=== PATIENT | male | born 1945 | race Caucasian/White ===

== ENCOUNTER → 2019-01-03 | Outpatient (CLI) | payer OTHER | END | disposition home or self-care (01) | LOC: LAB SHORT 12:00 → LAB 12:00 | DX: Z48.02 Encounter for removal of sutures (principal); L08.9 Local infection of the skin and subcutaneous tissue, unspecified; L82.1 Other seborrheic keratosis | CPT/HCPCS: 87070; 87205 ==

== ENCOUNTER → 2019-05-03 | Outpatient (CLI) | payer OTHER | END | disposition home or self-care (01) | LOC: LAB 09:48 → LAB SHORT 09:48 | DX: Z48.817 Encounter for surgical aftercare following surgery on the skin and subcutaneous tissue (principal); L08.9 Local infection of the skin and subcutaneous tissue, unspecified; R60.0 Localized edema | CPT/HCPCS: 87070; 87205 ==

== ENCOUNTER 2020-05-31 13:38 | Emergency (ER) | payer OTHER ==
[~2020-05-31] VITALS: Ht 180.3 cm; Wt 91.6 kg
[2020-05-31] MEDS ORDERED: AMLO5 PO (13:55)
[2020-05-31 14:23] LABS: Calcium, Blood 8.7 mg/dL (8.5-10.1); Creatinine, Blood 1.37 mg/dL (0.60-1.20); Potassium, Blood 3.8 mmol/L (3.5-5.5)
== END 2020-05-31 14:50 | disposition home or self-care (01) ==
LOC: ER 13:38
PROVIDERS: Physician Assistant
DX: R79.89 Other specified abnormal findings of blood chemistry (principal); N28.9 Disorder of kidney and ureter, unspecified; I10 Essential (primary) hypertension
CPT/HCPCS: 80048; 99281

== ENCOUNTER 2021-06-30 06:03 | Day surgery (SDC) | payer OTHER ==
[~2021-06-30] VITALS: Ht 180.3 cm; Wt 100.0 kg
[~2021-06-30 06:03] MED LIST: AMLO5 PO; ATOR40TA; Aspir 8181 MG PO; B-121000 MC7 PO; CLOP75 PO; EUTHYROX125 MCG PO; MELATONIN5 M1 PO; POTA8 PO; TERA5 PO
[2021-06-30] MEDS ORDERED: Lisinopril2.5 MG PO (06:33)
[2021-06-30] MEDS ORDERED: FURO40 PO (06:33)
--- NOTE | 2021-06-30 10:12 | NUR ---
PATIENT RETURNED FROM THE [facility] S/P RIGHT RENAL STENT. RIGHT FEMORAL ANGIOSEAL FAILED. MANUAL PRESSURE HELD AND HEMOSTASIS NOTED AT 0940. PATIENT PLACED ON THE MONITOR AND CALL LIGHT IN REACH. HOB FLAT, BED IN REVERSE TRENDELENBERG.
--- NOTE | 2021-06-30 12:05 | NUR ---
PATIENT ROLLED TO THE LEFT SIDE, RIGHT GROIN STABLE. URINATED. IVF DISCONTINUED. LUNCH TRAY SET UP ADN PATIENT FEEDING SELF.
--- NOTE | 2021-06-30 15:15 | NUR ---
1300 PATIENT ASSISTED UP SITTING ON THE SIDE OF THE BED. DRESSING SELF. PATIENT UP TO THE RESTROOM, WALKING WITH A CANE. GAIT STEADY, PATIENT C/O LIGHTHEADEDNESS AT FIRST BUT GETTING BETTER. PATIENT BACK TO BEDSIDE. REVIEWED DISCHARGE INSTRUCTIONS AND FOLLOW UP APPOINTMENT IN 4 WEEKS. PIV REMOVED AND PRESSURE DRESSING APPLIED. CALLED FOR RIDE. RIDE WILL BE HERE AT 1330. PATIENT WHEELCHAIRED TO THE [place] ENTRANCE AND DISCHARGED HOME VIA RIDE.
== END 2021-06-30 13:30 | disposition home or self-care (01) ==
LOC: MHTC 06:03
DX: I70.1 Atherosclerosis of renal artery (principal); I10 Essential (primary) hypertension
CPT/HCPCS: 76937; 99152; 99153; C1725; C1760; C1769; C1876; C1887; C1894; J1644; J2250; J3010; J7030; J7050; Q9967

== ENCOUNTER 2021-12-01 07:38 | Emergency (ER) | payer OTHER ==
[~2021-12-01] VITALS: Ht 180.3 cm; Wt 97.5 kg
[~2021-12-01 07:38] MED LIST changes: +FURO40 PO; +Lisinopril2.5 MG PO
[2021-12-01 08:14] LABS: BASOPHILS ABSOLUTE AUTO 0.05 K/mm3 (0.00-0.23); BASOPHILS PERCENT AUTO 1 % (0-2); EOSINOPHILS ABSOLUTE AUTO 0.26 K/mm3 (0.00-0.68); EOSINOPHILS PERCENT AUTO 5 % (0-6); Hematocrit 39.4 % (37.0-53.0); Hemoglobin 13.2 g/dL (13.5-17.5); IMMATURE GRAN ABSOLUTE AUTO 0.03 K/mm3 (0.00-0.10); IMMATURE GRAN PERCENT AUTO 1 % (0-1); LYMPHOCYTES ABSOLUTE AUTO 1.54 K/mm3 (0.84-5.20); LYMPHOCYTES PERCENT AUTO 27 % (21-46); MONOCYTES PERCENT AUTO 9 % (4-13); Mean Corpuscular HGB 30.7 pg (26.0-34.0); Mean Corpuscular HGB Conc 33.5 g/dL (31.5-36.5); Mean Corpuscular Volume 92 fL (80-100); Mean Platelet Volume 11.1 fL (9.1-12.4); NEUTROPHILS ABSOLUTE AUTO 3.43 K/mm3 (1.96-9.15); NEUTROPHILS PERCENT AUTO 59 % (41-73); Platelet Count 165 K/mm3 (150-400); RDW Coefficient Variation 14.5 % (11.7-14.2); RDW Standard Deviation 48.7 fL (35.1-46.3); White Blood Cell Count 5.81 K/mm3 (4.00-11.30)
[2021-12-01 08:56] LABS: Albumin, Blood 3.7 g/dL (3.4-5.0); Bilirubin, Total 0.5 mg/dL (0.1-1.0); Bun/Creatinine Ratio 19.6 (12.0-20.0); Calcium, Blood 8.8 mg/dL (8.5-10.1); Creatinine, Blood 2.25 mg/dL (0.60-1.20); Globulin, Blood 3.6 g/dL (2.2-4.0); Potassium, Blood 4.1 mmol/L (3.5-5.5); Total Protein, Blood 7.3 g/dL (6.4-8.2)
[2021-12-01 09:59] LABS: Source, Urine Voided
[2021-12-01 10:03] LABS: Bilirubin, Urine Neg (Neg); Blood, Urine Neg (Neg); Glucose Qualitative, Urine Neg (Neg); Ketones, Urine Neg (Neg); Leukocyte Esterase, Urine Neg (Neg); Nitrite, Urine Neg (Neg); Protein, Urine 1+ (Neg); Specific Gravity, Urine 1.015 (1.003-1.022); Urobilinogen, Urine NORM (Normal)
[2021-12-01 10:08] LABS: Appearance, Urine Clear (Clear); Color, Urine Yellow (P-Yellow)
[2021-12-01] MEDS ORDERED: Robaxin750 MG PO ×2 (11:22→13:05)
== END 2021-12-01 13:10 | disposition home or self-care (01) ==
LOC: ER 07:38
PROVIDERS: Emergency Medicine
DX: S39.012A Strain of muscle, fascia and tendon of lower back, initial encounter (principal); I12.9 Hypertensive chronic kidney disease with stage 1 through stage 4 chronic kidney disease, or unspecified chronic kidney disease; N18.30 Chronic kidney disease, stage 3 unspecified; Z88.1 Allergy status to other antibiotic agents; Z79.82 Long term (current) use of aspirin; Z79.899 Other long term (current) drug therapy; X58.XXXA Exposure to other specified factors, initial encounter
CPT/HCPCS: 76770; 80053; 85025; 96374; 96375; 99283; A9270; J1170; J3010

== ENCOUNTER 2023-04-04 18:23 | Inpatient (IN) | payer OTHER ==
[2023-04-04] VITALS (8 sets, daily range): BP systolic 82–120; BP diastolic 54–96
[~2023-04-04] VITALS: Ht 152.4 cm; Wt 91.9 kg
[~2023-04-04 18:23] MED LIST changes: +Robaxin750 MG PO
[2023-04-04 18:47] LABS: Bicarbonate Venous 15.1 mmol/L (24.0-30.0); PCO2 Venous 44.2 mmHg (38-42); pH Blood Venous 7.18 (7.34-7.37)
[2023-04-04 18:57] LABS: BASOPHILS ABSOLUTE AUTO 0.06 K/mm3 (0.00-0.23); BASOPHILS PERCENT AUTO 1 % (0-2); EOSINOPHILS ABSOLUTE AUTO 0.29 K/mm3 (0.00-0.68); EOSINOPHILS PERCENT AUTO 3 % (0-6); Hematocrit 34.6 % (37.0-53.0); Hemoglobin 11.3 g/dL (13.5-17.5); IMMATURE GRAN ABSOLUTE AUTO 0.14 K/mm3 (0.00-0.10); IMMATURE GRAN PERCENT AUTO 1 % (0-1); LYMPHOCYTES ABSOLUTE AUTO 3.07 K/mm3 (0.84-5.20); LYMPHOCYTES PERCENT AUTO 26 % (21-46); MONOCYTES ABSOLUTE AUTO 0.67 K/mm3 (0.16-1.47); MONOCYTES PERCENT AUTO 6 % (4-13); Mean Corpuscular HGB 30.5 pg (26.0-34.0); Mean Corpuscular HGB Conc 32.7 g/dL (31.5-36.5); Mean Corpuscular Volume 94 fL (80-100); Mean Platelet Volume 11.5 fL (9.1-12.4); NEUTROPHILS ABSOLUTE AUTO 7.48 K/mm3 (1.96-9.15); NEUTROPHILS PERCENT AUTO 64 % (41-73); Platelet Count 194 K/mm3 (150-400); RDW Coefficient Variation 14.6 % (11.7-14.2); RDW Standard Deviation 50.4 fL (35.1-46.3); White Blood Cell Count 11.71 K/mm3 (4.00-11.30)
[2023-04-04 19:00] LABS: Calcium, Ionized (POC) 1.15 mmol/L (1.10-1.46); Chloride (POC) 106 mmol/L (98-108); Glucose (ISTAT POC) 164 mg/dL (70-99); Hemoglobin (POC) 10.9 g/dL (13.5-17.5); Potassium (POC) 3.6 mmol/L (3.5-5.5); Sodium (POC) 141 mmol/L (135-148); Total CO2 (POC) 19 mmol/L (21-32)
[2023-04-04 19:29] LABS: Bilirubin, Total 0.4 mg/dL (0.1-1.0); Calcium, Blood 8.5 mg/dL (8.5-10.1); Creatinine, Blood 2.86 mg/dL (0.60-1.20); Globulin, Blood 2.9 g/dL (2.2-4.0); Magnesium, Blood 2.6 mg/dL (1.6-2.4); Potassium, Blood 3.5 mmol/L (3.5-5.5); Total Protein, Blood 5.9 g/dL (6.4-8.2)
[2023-04-04 20:08] LABS: International Normalized Ratio 0.98; Prothrombin Time Results 10.3 Sec (9.7-11.5)
--- NOTE | 2023-04-04 21:52 | NUR ---
PT IS ALERT AND ORIENTED X4, VERY RESTLESS COMPLAINING OF ABDOMINAL PAIN. LEVOPHED DRIP INFUSING AT 9MCGS TO MAINTAIN MAP >65. OXYGEN SAT IS 95% ON 2LNC. PT AT BEDSIDE. PT IS SR ON THE HEEL SPRAYER, RATE IN THE 70S. PT IS AFEBRILE. PT HAS LARGE ABRASION ON HIS RIGHT LOWER LEG. TEMP AWAN PLACED IN ER, DRAINING YELLOW URINE. PT HAS HAD MULTIPLE BM SINCE COMING ON MY SHIFT.
[2023-04-05] VITALS (78 sets, daily range): BP systolic 70–143; BP diastolic 37–127
[2023-04-05 01:06] LABS: Base Excess Venous -6.8 mmol/L; Bicarbonate Venous 19.3 mmol/L (24.0-30.0); PCO2 Venous 35.2 mmHg (38-42); pH Blood Venous 7.34 (7.34-7.37)
[2023-04-05 01:07] LABS: BASOPHILS ABSOLUTE AUTO 0.03 K/mm3 (0.00-0.23); BASOPHILS PERCENT AUTO 0 % (0-2); EOSINOPHILS ABSOLUTE AUTO 0.01 K/mm3 (0.00-0.68); EOSINOPHILS PERCENT AUTO 0 % (0-6); Hematocrit 29.8 % (37.0-53.0); IMMATURE GRAN ABSOLUTE AUTO 0.11 K/mm3 (0.00-0.10); IMMATURE GRAN PERCENT AUTO 1 % (0-1); LYMPHOCYTES ABSOLUTE AUTO 0.62 K/mm3 (0.84-5.20); LYMPHOCYTES PERCENT AUTO 4 % (21-46); MONOCYTES ABSOLUTE AUTO 0.68 K/mm3 (0.16-1.47); MONOCYTES PERCENT AUTO 4 % (4-13); Mean Corpuscular HGB 30.2 pg (26.0-34.0); Mean Corpuscular HGB Conc 33.6 g/dL (31.5-36.5); Mean Corpuscular Volume 90 fL (80-100); Mean Platelet Volume 11.3 fL (9.1-12.4); NEUTROPHILS ABSOLUTE AUTO 13.84 K/mm3 (1.96-9.15); NEUTROPHILS PERCENT AUTO 91 % (41-73); Platelet Count 150 K/mm3 (150-400); RDW Coefficient Variation 14.8 % (11.7-14.2); RDW Standard Deviation 48.9 fL (35.1-46.3); Red Blood Cell Count 3.31 M/mm3 (4.30-5.90); White Blood Cell Count 15.29 K/mm3 (4.00-11.30)
[2023-04-05 01:31] LABS: Albumin, Blood 2.7 g/dL (3.4-5.0); Bilirubin, Total 0.6 mg/dL (0.1-1.0); Bun/Creatinine Ratio 16.6 (12.0-20.0); Calcium, Blood 7.8 mg/dL (8.5-10.1); Creatinine, Blood 2.65 mg/dL (0.60-1.20); Globulin, Blood 2.6 g/dL (2.2-4.0); Potassium, Blood 4.6 mmol/L (3.5-5.5); Thyroid Stimulating Hormone 0.045 uIU/mL (0.360-4.800); Total Protein, Blood 5.3 g/dL (6.4-8.2)
[2023-04-05 04:56] LABS: Source, Urine Foley catheter
[2023-04-05 05:05] LABS: Appearance, Urine Hazy (Clear); Bilirubin, Urine Neg (Neg); Blood, Urine 3+ (Neg); Color, Urine Yellow (P-Yellow); Glucose Qualitative, Urine Neg (Neg); Ketones, Urine Neg (Neg); Leukocyte Esterase, Urine Neg (Neg); Nitrite, Urine Neg (Neg); Protein, Urine 2+ (Neg); Specific Gravity, Urine 1.015 (1.003-1.022); Urobilinogen, Urine NORM (Normal)
[2023-04-05 05:17] LABS: Amorphous Light (0-Heavy); Bacteria Few /hpf; Granular Casts 0-2 /lpf (0); Mucus Light (0-Heavy); Squamous Epithelial Cells Few /hpf (Few); White Blood Cells, Urine Not Seen /hpf (0-5)
--- NOTE | 2023-04-05 06:07 | NUR ---
SHIFT SUMMERY PT IS ALERT AND ORIENTED X4, STILL HAVING ABD PAIN, MEDICATED PER EMAR. PT HAS ALSO HAD NAUSEA AND VOMITING, MEDICATED PER EMAR WELL. HE HAS HAD MULTIPLE BM THAT HAVE BECOME INCREASINGLY MORE LIQUID AND BRIGHT RED BLOODY THE NIGHT HAS PROGRESSED. OCCULT STOOL HAS BEEN ORDERED BUT PT HAS NOT HAD BM SINCE THAT TIME. HE IS ON LEVOPHED, TITRATING FOR MAP >65. HE IS A DAILY DRINKER. PT HAS BEEN AFEBRILE.
[2023-04-05 06:31] LABS: BASOPHILS ABSOLUTE AUTO 0.02 K/mm3 (0.00-0.23); BASOPHILS PERCENT AUTO 0 % (0-2); EOSINOPHILS ABSOLUTE AUTO 0.01 K/mm3 (0.00-0.68); EOSINOPHILS PERCENT AUTO 0 % (0-6); Hematocrit 28.5 % (37.0-53.0); Hemoglobin 9.7 g/dL (13.5-17.5); IMMATURE GRAN ABSOLUTE AUTO 0.07 K/mm3 (0.00-0.10); IMMATURE GRAN PERCENT AUTO 1 % (0-1); LYMPHOCYTES ABSOLUTE AUTO 0.79 K/mm3 (0.84-5.20); LYMPHOCYTES PERCENT AUTO 6 % (21-46); MONOCYTES PERCENT AUTO 6 % (4-13); Mean Corpuscular HGB 30.6 pg (26.0-34.0); Mean Corpuscular Volume 90 fL (80-100); Mean Platelet Volume 11.7 fL (9.1-12.4); NEUTROPHILS ABSOLUTE AUTO 11.87 K/mm3 (1.96-9.15); NEUTROPHILS PERCENT AUTO 88 % (41-73); Platelet Count 137 K/mm3 (150-400); RDW Coefficient Variation 14.6 % (11.7-14.2); RDW Standard Deviation 48.2 fL (35.1-46.3); Red Blood Cell Count 3.17 M/mm3 (4.30-5.90); White Blood Cell Count 13.56 K/mm3 (4.00-11.30)
[2023-04-05 06:48] LABS: Albumin, Blood 2.7 g/dL (3.4-5.0); Albumin/Globulin Ratio 1.1 (0.8-1.8); Bilirubin, Total 0.6 mg/dL (0.1-1.0); Bun/Creatinine Ratio 17.2 (12.0-20.0); Calcium, Blood 7.7 mg/dL (8.5-10.1); Creatinine, Blood 2.56 mg/dL (0.60-1.20); Globulin, Blood 2.5 g/dL (2.2-4.0); Magnesium, Blood 2.2 mg/dL (1.6-2.4); Potassium, Blood 4.1 mmol/L (3.5-5.5); Total Protein, Blood 5.2 g/dL (6.4-8.2)
--- NOTE | 2023-04-05 08:00 | NUR ---
ASSUMED CARE: REPORT RECEIVED FROM ROCÍO Blair RN. ASSUMED CARE OF THIS PT AT APPROX 0700. ON ASSESSMENT, THE PT IS RESTING QUIETLY & AWAKENS EASILY TO VERBAL STIMULUS. PER REPORT, THE PT HAS BEEN A&O TO ALL UNTIL RECEIVING PRN DOSE OF ATIVAN AT APPROX 0630 THIS AM FOR INCREASING ANXIETY. SINCE THAT TIME HE HAS BECOME CONFUSED & IMPULSIVE, PULLING AT LINES & ATTEMPTING TO CLIMB OOB. 1:1 SITTER REQUESTED BY THIS RN R/T BEHAVIORAL CHANGES & HIGH FALL RISK, NURSING VOLUNTEER SERVICES ASSISTANT NOTIFIED. LS DIM T/O, PT ON 2L NC W/ O2 SATS > 92% ON AVG. MONITOR SHOWS SR W/ HR 80s, HYPOTENSION W/ LEVOPHED INFUSING AT 3 MCG/MIN - SEE FLOWSHEET FOR TITRATIONS. PT NPO PER NURSING JUDGEMENT R/T AMS & SOMNOLENCE. TEMP AWAN PATENT/ DRAINING YELLOW URINE. SKIN CONDITION OVERALL FRAGILE, ECCHYMOTIC. NUMEROUS AREAS OF BRUISING NOTED TO BUE & LARGE ABRASION NOTED TO ANTERIOR RLE. PT STS THIS IS FROM FALLING IN THE SHOWER AT HOME PRIOR TO ADMISSION. Q2H REPOSITIONING TO MAINTAIN SKIN INTEGRITY. WILL CONTINUE TO MONITOR & UPDATE NEEDED.
[2023-04-05 10:47] LABS: Hematocrit 26.4 % (37.0-53.0)
--- NOTE | 2023-04-05 11:30 | NUR ---
DR MIKE / PALLIATIVE CARE: PROVIDER HAS CONTACTED THIS RN REGARDING AN UPDATE ON THE PT THIS AM. THIS RN HAS NOTIFIED HIM THAT THE PT CONTINUES TO REQUIRE VASOPRESSOR THERAPY TO MAINTAIN ADEQUATE BLOOD PRESSURES & THAT HE WAS NEVER STARTED ON HEPARIN R/T GI BLEEDING THAT WAS NOTED IN THE ED & HAS CONTINUED WHILE ADMITTED TO ICU. BLEEDING IS MINIMAL & NOTED TO BE DARK RED. REPEAT LABS HAVE BEEN ORDERED & THE PROVIDER HAS COME TO BEDSIDE TO EVAL THE PT & SPEAK W/ FAMILY. THIS RN HAS REQUESTED THAT CLIFF Sneed, PALLIATIVE RN, ALSO COME TO BEDSIDE DURING THIS TIME TO ASSIST W/ DISCUSSION REGARDING GOALS OF CARE FOR THIS PT. IT HAS BEEN DETERMINED DURING THIS TIME THAT THE PT WOULD NOT WANT TO RECEIVE CPR. DO NOT RESUSCITATE ORDERS PLACED, PURPLE DNR BAND NOW ON DOORFRAME & PT's LEFT WRIST. DR MIKE WILL BE CONSULTING GASTROENTEROLOGY & INTERVENTIONAL RADIOLOGY FOR THIS PT. ORDERS PLACED & PROVIDERS CONTACTED. BOTH PROVIDERS PLAN TO SEE THE PT KEILY.
--- NOTE | 2023-04-05 11:40 | NUR ---
Joint visit with Dr Grimaldo at Pt's bedside. Pt's OG Louis, and Pt's daughter Liliana at bedside. Dr Grimaldo examines Pt, reviews plan of care with Pt and family. This RN remained behind and answered questions. Pt appears to be struggling tracking conversation at this moment. Engaged in therapeutic discussion with Pt's OG Louis and Pt's daughter Liliana regarding code status wishes. Educated on life sustaining treatments including risks and implications to CPR/Intubation. Family reports Pt's wishes are DNR. Pt's Primary RN Melida at bedside during conversation. Melida will call Dr Grimaldo to discuss family concerns regarding antibiotics and will discuss changing Pt's code status to DNR. Family expresses appreciation and report no other concerns at this time. Pt and family agreeable to continued PC visits. Palliative Care will remain available
--- NOTE | 2023-04-05 11:45 | NUR ---
DR QURESHI: PROVIDER TO BEDSIDE THIS AM FOR CONSULTATION. HE HAS SPOKEN W/ THE PT & HIS FAMILY WHO ARE CURRENTLY AT BEDSIDE. THEY ARE AGREEABLE FOR THE PT TO HAVE SAND MILL OPERATOR PROCEDURE W/ ATTEMPT TO BALLOON OPEN THE RIGHT RENAL ARTERY STENT THAT IS CURRENTLY OCCLUDED. DR QURESHI WILL DISCUSS BEST PLAN OF CARE W/ Yolande MIKE & ZAFAR FOR THE EVENING.
--- NOTE | 2023-04-05 12:35 | NUR ---
DR STEPHEN: PROVIDER AT BEDSIDE THIS AFTERNOON FOR CONSULTATION. HE HAS BEEN ABLE TO VISUALIZE THE PT's BLOODY STLS IN THE BEDPAN & PLANS TO COMPLETE AN ENDOSCOPY THIS EVENING AFTER PRIOR SCHEDULED CASES HAVE BEEN COMPLETED. HE WOULD LIKE TO BE NOTIFIED IF CHANGES OCCUR OR IF THE PT BECOMES MORE CRITICAL PRIOR TO THAT TIME.
--- NOTE | 2023-04-05 13:25 | NUR ---
CALL TO PROVIDER: THIS RN HAS CONTACTED DR MIKE REGARDING THE PT's INCREASING LEVOPHED REQUIREMENTS W/ REQUESTS FOR ORDERS TO PLACE PICC LINE. ORDERS PLACED & EMILY Gonzalez, STREETCAR CONDUCTOR, PLANS TO PLACE A PICC LINE OVER THE WIRE OF THE POWERGLIDE THAT SHE PLACED TO HIS RUE THIS AM. PROVIDER STS OKAY TO CONSULT HANDLE TURNER FOR CENTRAL LINE PLACEMENT IF UNABLE TO PLACE PICC LINE.
--- NOTE | 2023-04-05 14:55 | NUR ---
CALL TO PROVIDER: DR MIKE CONTACTED W/ REQUEST FOR ADDITIONAL VASOPRESSOR R/T PT's CONTINUED LOW BP DESPITE INCREASED LEVOPHED INFUSION - SEE VS. ORDERS FOR VASOPRESSIN HAVE BEEN PLACED & DR FISHMAN, MEDICAL FACILITIES SECTION DIRECTOR, HAS BEEN CONSULTED TO SEE THIS PT & ASSIST W/ MANAGING CRITICAL CARE NEEDS. ORDERS PLACED & PROVIDER NOTIFIED.
[2023-04-05 15:08] LABS: Hematocrit 25.6 % (37.0-53.0); Hemoglobin 8.9 g/dL (13.5-17.5)
[2023-04-05 15:18] LABS: Base Excess Venous 1.4 mmol/L; Bicarbonate Venous 25.2 mmol/L (24.0-30.0); PCO2 Venous 42.7 mmHg (38-42)
[2023-04-05 15:24] LABS: Bun/Creatinine Ratio 16.1 (12.0-20.0); Creatinine, Blood 2.79 mg/dL (0.60-1.20); Potassium, Blood 3.6 mmol/L (3.5-5.5)
--- NOTE | 2023-04-05 16:55 | NUR ---
BIKE TECHNICIAN: PT HAS BEEN TAKEN OUT OF ROOM BY BIKE TECHNICIAN RNs FOR PROCEDURE W/ DR Fisher AT APPROX 1655.
--- NOTE | 2023-04-05 18:54 | NUR ---
RETURN FROM POMPOM MAKER / SHIFT SUMMARY: PT RETURNED TO ICU-10 AT APPROX 1820. ON ARRIVAL, HE IS RESTING QUIETLY BUT AWAKENS EASILY TO VERBAL STIMULUS. HE STS HAVING PAIN IN HIS HIPS R/T LAYING FLAT DURING PROCEDURE. PT ON 6L NC W/ O2 SATS > 92%. REQUESTS CPAP, PLACED ON PT W/ 4L O2 BLEED-IN. MONITOR SHOWS SR W/ HR 70-80s, LEVOPHED INFUSING AT 8 MCG/MIN, TITRATED TO 6 MCG/MIN W/ ARTERIAL LINE BP READING 130/50s. PT HAS NO CURRENT GI COMPLAINTS, SMALL AMNT OF PINK/RED FLUID NOTED BY POMPOM MAKER STAFF COMING FROM RECTUM DURING PROCEDURE. TEMP AWAN PATENT/ DRAINING YELLOW URINE, ADEQUATE OUTPUT NOTED THIS SHIFT. SKIN CONDITION OVERALL FRAGILE/ ECCHYMOTIC. 6FR SHEATH IN PLACE TO LEFT RADIAL ARTERY S/P POMPOM MAKER PROCEDURE. SMALL AMNT BRUISING NOTED AT INSERTION SITE, SURROUNDING TISSUE IS SOFT & PT DENIES PAIN OR ALTERED SENSATION TO AFFECTED HAND/ DIGITS. WILL CONTINUE TO MONITOR & REPORT OFF TO ONCOMING RN.
--- NOTE | 2023-04-05 19:00 | NUR ---
ASSUMED CARE ASSUMED CARE OF PATIENT. PT IS AWAKE AND ALERT. RESTLESS AND AGITATED IN BED. C/O LOWER BACK PAIN AND GENERAL DISCOMFORT. FAMILY IS AT BEDSIDE. SLOW VERBAL RESPONSE AND SPEECH IS SLIGHTLY MUMBLED, BUT PT IS ORIENTED X 3. CPAP 8-15 WITH 2L O2 BLEED-IN AT THIS TIME. RESPIRATIONS EVEN AND UNLABORED. UNABLE TO GET ADEQUATE O2 SATS D/T POOR PERFUSION. DENIES SOB OR DYSPNEA. MONITOR SHOWS NSR, RATE 70s-80s. LEVOPHED INFUSING AT 6MCG/MIN AND VASOPRESSIN AT 0.04UNITS/MIN TO MAINTAIN MAP >65. LEFT RADIAL ART LINE IN PLACE- POSITIONAL AND WITH POOR WAVE FORM AT TIMES. AWAN PATENT AND DRAINING DARK YELLOW URINE TO GRAVITY. PT OCCASIONALLY PULLING ON AWAN CATHETER. RIGHT BRAND ABRASION NOTED- TORI. SCATTERED BRUISES NOTED. CRISTIANO PICC NOTED, PATENT. SEE SHIFT ASSESSMENT FOR FULL ASSESSMENT.
--- NOTE | 2023-04-05 20:05 | NUR ---
PAIN DISCUSSED C/O INCREASED LOWER BACK PAIN WITH BOTH DR. BOLAND AND WITH EDDIE SANCHEZ NP. NEW ORDERS RECEIVED FOR PAIN MEDS.
--- NOTE | 2023-04-05 20:15 | NUR ---
EGD SCOPE CREW IS HERE AT THIS TIME WITH DR. STEPHEN AND DR. PABLO.
--- NOTE | 2023-04-05 20:41 | NUR ---
04/05/2320[address] DR[address] GARCIA, SEE ANESTHESIA RECORDS.
[2023-04-05 21:50] LABS: Hematocrit 25.8 % (37.0-53.0); Hemoglobin 8.6 g/dL (13.5-17.5)
--- NOTE | 2023-04-05 22:25 | NUR ---
AGITATION PT WITH INCREASED AGITATION AND RESLTLESSNESS. DOES NOT FOLLOW ANY COMMANDS AT THIS TIME. PULLING ON ALL LINES AND TUBES. ATTEMPTING TO CLIMB OUT OF BED. PT IS NOT RE-DIRECTABLE. CALL TO EDDIE SANCHEZ NP- NEW ORDERS RECEIVED FOR HALDOL.
[2023-04-06] VITALS (41 sets, daily range): BP systolic 63–129; BP diastolic 34–96
--- NOTE | 2023-04-06 00:05 | NUR ---
DECREASED URINE OUTPUT/CRITICAL LABS/CALL TO PT WITH <10MLs URINE X [address] FISHMAN WITH CONDITION UPDATE AND CRITICAL LAB VALUES. ORDER RECEIVED TO DO A 500ML NS BOLUS AT THIS TIME.
[2023-04-06 00:50] LABS: Base Excess Venous -13.3 mmol/L; Bicarbonate Venous 13.6 mmol/L (24.0-30.0); PCO2 Venous 46.9 mmHg (38-42); pH Blood Venous 7.14 (7.34-7.37)
--- NOTE | 2023-04-06 01:00 | NUR ---
CALL TO DISCUSSED CONDITION OF PT WITH DR. FISHMAN. NEW ORDER RECEIVED FOR A STAT EKG AND STAT LAB DRAWS. DR. FISHMAN WILL BE IN TO SEE PT.
--- NOTE | 2023-04-06 01:30 | NUR ---
UPDATE DR. FISHMAN AT BEDSIDE TO EVALUATE PT. PT CONTINUES TO BE RESTLESS/AGITATED. ANSWERS SOME YES/NO QUESTIONS. STILL NOT RE-DIRECTABLE AND STILL DOES NOT FOLLOW ANY COMMANDS. DR. FISHMAN AND THIS NURSE ATTEMPTED TO CALL DAUGHTER AND SIGNIFICANT OTHER FOR UPDATE- NO ANWER X THREE ATTEMPTS. NEW ORDER RECEIVED FOR A CARDIOLOGY CONSULT THIS AM.
--- NOTE | 2023-04-06 02:00 | NUR ---
BIPAP PT PLACED ON BIPAP 14/8, BUR 14, WITH 5L O2 AT THIS TIME PER DR. FISHMAN.
[2023-04-06 04:52] LABS: Albumin, Blood 2.4 g/dL (3.4-5.0); Bilirubin, Total 0.7 mg/dL (0.1-1.0); Bun/Creatinine Ratio 14.3 (12.0-20.0); Calcium, Blood 7.4 mg/dL (8.5-10.1); Creatinine, Blood 3.28 mg/dL (0.60-1.20); Globulin, Blood 2.5 g/dL (2.2-4.0); Magnesium, Blood 2.2 mg/dL (1.6-2.4); Phosphorus, Blood 7.5 mg/dL (2.5-4.9); Potassium, Blood 4.4 mmol/L (3.5-5.5); Total Protein, Blood 4.9 g/dL (6.4-8.2)
[2023-04-06 05:52] LABS: PCO2 Arterial 28.1 mmHg (35-45); PO2 Arterial 55.2 mmHg (80-100); pH Blood Arterial 7.19 (7.35-7.45)
--- NOTE | 2023-04-06 06:28 | NUR ---
SHIFT SUMMARY LEVOPHED TITRATED BETWEEN 6-14MCG/MIN TO MAINTAIN MAP >65. NOW INFUSING AT 11MCG/MIN. VASOPRESSIN CONTINUES AT 0.04UNITS/MIN. EXTREMITIES ARE COOL TO TOUCH. PT CONTINUES TO BE AGITATED AND RESTLESS. PT PLACED ON BIPAP 14/8 WITH 5L O2 AT 0200 PER MD. UNABLE TO GET ACCURATE O2 SATS T/O NIGHT D/T POOR PERFUSION. ORIENTED TO SELF ONLY AT THIS TIME. WILL ANSWER SOME YES/NO QUESITONS, BUT SPEECH IS MUMBLED. DOES NOT FOLLOW COMMANDS AND STILL IS NOT REDIRECTABLE. MOVES ALL EXTREMITIES AND REPOSITIONS SELF IN BED. BILATERAL SOFT WRIST RESTRAINTS OFF AT 0600- 1:1 SITTER IS AT BEDSIDE. NPO FOR NOW D/T ASPIRATION RISK. AWAN PATENT AND DRAINING TO GRAVITY- URINE OUTPUT HAS BEEN MINIMAL SINCE MIDNIGHT. DR. FISHMAN IS AWARE OF DECREASED URINE OUTPUT. AM LABS ARE PENDING AT THIS TIME. TMAX 100.3F. ATTEMPTED TO NOTIFY SIGNIFICANT OTHER AND DAUGHTER DURING NOC FOR STATUS UPDATE, BUT PHONE CALLS WERE UNANSWERED. EGD DONE AT BEGINNING OF SHIFT. WILL REPORT TO ONCOMING RN WHEN AVAILABLE.
[2023-04-06 06:33] LABS: BASOPHILS ABSOLUTE AUTO 0.02 K/mm3 (0.00-0.23); BASOPHILS PERCENT AUTO 0 % (0-2); EOSINOPHILS ABSOLUTE AUTO 0.01 K/mm3 (0.00-0.68); EOSINOPHILS PERCENT AUTO 0 % (0-6); Hematocrit 25.3 % (37.0-53.0); Hemoglobin 8.1 g/dL (13.5-17.5); IMMATURE GRAN ABSOLUTE AUTO 0.33 K/mm3 (0.00-0.10); IMMATURE GRAN PERCENT AUTO 2 % (0-1); LYMPHOCYTES ABSOLUTE AUTO 0.73 K/mm3 (0.84-5.20); LYMPHOCYTES PERCENT AUTO 4 % (21-46); MONOCYTES ABSOLUTE AUTO 1.28 K/mm3 (0.16-1.47); MONOCYTES PERCENT AUTO 7 % (4-13); Mean Corpuscular HGB 30.1 pg (26.0-34.0); Mean Corpuscular Volume 94 fL (80-100); Mean Platelet Volume 11.6 fL (9.1-12.4); NEUTROPHILS ABSOLUTE AUTO 15.91 K/mm3 (1.96-9.15); NEUTROPHILS PERCENT AUTO 87 % (41-73); Platelet Count 138 K/mm3 (150-400); RDW Coefficient Variation 15.6 % (11.7-14.2); RDW Standard Deviation 53.8 fL (35.1-46.3); Red Blood Cell Count 2.69 M/mm3 (4.30-5.90); White Blood Cell Count 18.28 K/mm3 (4.00-11.30)
[2023-04-06 07:47] LABS: Albumin, Blood 2.5 g/dL (3.4-5.0); Albumin/Globulin Ratio 0.9 (0.8-1.8); Bilirubin, Total 0.8 mg/dL (0.1-1.0); Bun/Creatinine Ratio 13.7 (12.0-20.0); Calcium, Blood 7.7 mg/dL (8.5-10.1); Creatinine, Blood 3.88 mg/dL (0.60-1.20); Globulin, Blood 2.8 g/dL (2.2-4.0); Potassium, Blood 4.7 mmol/L (3.5-5.5); Total Protein, Blood 5.3 g/dL (6.4-8.2)
--- NOTE | 2023-04-06 08:04 | NUR ---
CARE OF PT ASSUMED AT 0700. PT RESTLESS IN BED, TURNING FROM SIDE TO SIDE, REACHING AND PULLING AT LINES. SITTER AT BEDSIDE. PT DOES OPEN EYES TO VOICE, UNABLE TO FOLLOW SIMPLE COMMANDS AT THIS TIME. UNABLE TO ANSWER QUESTIONS AT THIS TIME. PT HAD LEVOPHED INITIALLY AT 11MCG TO KEEP MAP >65, AND VASOPRESSIN AT 0.04UNITS. LEVOPHED HAS BEEN TITRATED UP TO 14MCG. PT COOL AND PALE, WITH POOR PERIPHERAL PERFUSION. RECTAL TEMP PROBE PLACED, TEMP SHOWS 96.0. WARM BLANKETS PLACED. UNABLE TO OBTAIN SATS D/T PERFUSION; RT ATTEMPTED SEVERAL TIMES THIS AM. ABG DRAWN THIS AM. PT IN JUNCTIONAL RYTHYM W RATE 50'S. PT ON BIPAP 14/[address] LAZ Flores NEPHROLOGY CALLED THIS AM FOR CONSULT. DR HUERTAS CONSULTED WELL FOR CARDIOLOGY. PT'S DAUGHTER UPDATED BY JAKE MENDIOLA AROUND 0730 AND WILL BE IN THIS AM. DR FISHMAN WAS UPDATED BY JAKE MENDIOLA AND WILL BE IN SHORTLY.
[2023-04-06 08:08] LABS: BASOPHILS ABSOLUTE AUTO 0.02 K/mm3 (0.00-0.23); BASOPHILS PERCENT AUTO 0 % (0-2); EOSINOPHILS PERCENT AUTO 0 % (0-6); Hematocrit 25.6 % (37.0-53.0); Hemoglobin 8.2 g/dL (13.5-17.5); IMMATURE GRAN ABSOLUTE AUTO 0.36 K/mm3 (0.00-0.10); IMMATURE GRAN PERCENT AUTO 2 % (0-1); LYMPHOCYTES ABSOLUTE AUTO 0.86 K/mm3 (0.84-5.20); LYMPHOCYTES PERCENT AUTO 5 % (21-46); MONOCYTES ABSOLUTE AUTO 0.88 K/mm3 (0.16-1.47); MONOCYTES PERCENT AUTO 5 % (4-13); Mean Corpuscular HGB 30.5 pg (26.0-34.0); Mean Corpuscular Volume 95 fL (80-100); Mean Platelet Volume 12.1 fL (9.1-12.4); NEUTROPHILS PERCENT AUTO 88 % (41-73); Platelet Count 146 K/mm3 (150-400); RDW Coefficient Variation 15.7 % (11.7-14.2); RDW Standard Deviation 54.2 fL (35.1-46.3); Red Blood Cell Count 2.69 M/mm3 (4.30-5.90); White Blood Cell Count 18.42 K/mm3 (4.00-11.30)
--- NOTE | 2023-04-06 08:53 | NUR ---
DR NESBITT W NEPHROLOGY IN TO SEE PT. DR HUERTAS IS AWARE OF CONSULT AND WILL SEE PT TODAY. FAMILY AT BEDSIDE, INCLUDING PT'S S/O, AND PT'S DAUGHTER.
--- NOTE | 2023-04-06 09:50 | NUR ---
DR FISHMAN AT BEDSIDE, SPOKE WITH PATIENTS FAMILY. FAMILY HAS DECIDED THAT PATIENT WOULD WANT TO BE COMFORTABLE AND WOULD NOT WANT TO CONTINUE AGGRESSIVE CARE, FAMILY HAS DECIDED TO MAKE PATIENT COMFORT STATUS. HAS BEEN CALLED IN FOR "VIATICUM" PER FAMILY REQUEST.
--- NOTE | 2023-04-06 10:28 | NUR ---
Spiritual Care Support. Visited to inform family that Father Tutu has been contacted to come and do prayer and annointing of the sick. Family displayed evidence of being very open to spiritual care support in the present moment. Facilitated a short life review. Family asked for prayer for the Pt. and gathered around the Pt. and prayer was given. Family verbalized gratitude for the spiritual care visit. When Pt. passes, the family has chosen [facility] for their services.
--- NOTE | 2023-04-06 10:31 | NUR ---
YANIV Flores PASTORAL CARE AT BEDSIDE, OFFERED SUPPORT FOR FAMILY. DR MIKE AND PALLIATIVE CARE AT BEDSIDE WELL TO SEE PT/FAMILY.
--- NOTE | 2023-04-06 10:58 | NUR ---
DR HUERTAS AT BEDSIDE.
--- NOTE | 2023-04-06 11:33 | NUR ---
Spoke with Dr Grimaldo and discussed case. Pt's condition has significantly decline and family has elected comfort care. Brief supportive visit this AM. Lots of family at bedside. Offered therapeutic listening and emotional support. Daughter Liliana reports plan for Father Tutu to come then will proceed with comfort care. Family agreeable for this PC RN to F/U later. Spoke with Area Captain Mike and discussed case. Palliative Care will remain available
--- NOTE | 2023-04-06 12:24 | NUR ---
PT GIVEN BEDBATH, PERIPHERAL IV'S DC'D. PICC LINE REMAINS. AWAN CATH DC'D W/O DIFFICULTY. BIPAP REMOVED. 2L VIA N/C PLACED ON PT. LEVOPHED AND VASOPRESSIN STOPPED. 2MG MS INITIALLY GIVEN TO PT, PT CONTINUED TO BE RESTLESS W MOANING. ADDITIONAL 3MG MS GIVEN. PT APPEARS COMFORTABLE AND MORE RESTFUL AT THIS TIME. FAMILY AT BEDSIDE.
--- NOTE | 2023-04-06 12:28 | NUR ---
Spiritual Care Support. Brought in Father Tutu to give Prayer and annointing of the sick. Afterward stayed with Family as the nursing staff cleaned the Pt. and prepared to discontinue care. Again, the family has chosen [facility] for their services. Family verbalized gratitude for thew spiritual care support.
--- NOTE | 2023-04-06 13:52 | NUR ---
Supportive visit this afternoon. Pt resting in bed with his eyes closed. Pt appears comfortable with no S/S of distress. Pt is imminent. Lots of family at bedside. Instructed of the importance of speaking with Pt and offering reasurrance. Pt passes away peacefully. Offered condolences. Family appears to be grieving appropriately. Left room to allow family alone time. Palliative Care will remain available
--- NOTE | 2023-04-06 13:57 | NUR ---
"Spiritual Care | EOL Pt. passed at 13:40. Family members surrounded bedside. Prayed a blessing over the Pt. and family. Family remain at bedside supporting one another. EOL education is given. Family verbalized gratitude for the spiritual care support."
--- NOTE | 2023-04-06 14:36 | NUR ---
TIME OF 1340. FAMILY AT BEDSIDE. PASTORAL CARE AT BEDSIDE AT TIME OF . FINAL DISCHARGE CALLED. FAMILY GIVEN SUPPORT, FAMILY ALSO GIVEN KEEPSAKES; PT'S EKG RYTHYM, FINGER PRINTS, FINGER PRINT KEYCHAIN, GRIEF SUPPORT INFORMATION. PHYSICIANS, POINT OF CARE SPECIALIST, AND BANKRUPTCY LEGAL ASSISTANT NOTIFIED. PT WILL BE RELEASED TO [facility].
--- NOTE | 2023-04-06 15:43 | NUR ---
BELONGINGS: CPAP TAKEN HOME BY FAMILY; MASK LEFT AT HOSPITAL. MESSAGE LEFT W S/O REGARDING MASK. DENTURES WITH PT AND WILL BE SENT TO HOME.
== END 2023-04-06 13:40 | DRG 380 ==
LOC: ER 18:23 → ICUE 22:21
PROVIDERS: Emergency Medicine; Internal Medicine; Internal Medicine Gastroenterology; Student in an Organized Health Care Education/Training Program; ADMIT Student in an Organized Health Care Education/Training Program
PROC: 3E033XZ Introduction of Vasopressor into Peripheral Vein, Percutaneous Approach (ICD-10-PCS; 2023-04-04)
PROC: B4161ZZ Fluoroscopy of Right Renal Artery using Low Osmolar Contrast (ICD-10-PCS; 2023-04-05)
PROC: 0DB68ZX Excision of Stomach, Via Natural or Artificial Opening Endoscopic, Diagnostic (ICD-10-PCS; 2023-04-05)
PROC: 5A09357 Assistance with Respiratory Ventilation, Less than 24 Consecutive Hours, Continuous Positive Airway Pressure (ICD-10-PCS; 2023-04-05)
PROC: 0T9B70Z Drainage of Bladder with Drainage Device, Via Natural or Artificial Opening (ICD-10-PCS; 2023-04-05)
PROC: 02HV33Z Insertion of Infusion Device into Superior Vena Cava, Percutaneous Approach (ICD-10-PCS; principal; 2023-04-05 17:15)
PROC: 4A033R1 Measurement of Arterial Saturation, Peripheral, Percutaneous Approach (ICD-10-PCS; 2023-04-06)
DX: K22.11 Ulcer of esophagus with bleeding (principal); G93.41 Metabolic encephalopathy; I21.4 Non-ST elevation (NSTEMI) myocardial infarction; I50.21 Acute systolic (congestive) heart failure; J96.01 Acute respiratory failure with hypoxia; N17.0 Acute kidney failure with tubular necrosis; I13.0 Hypertensive heart and chronic kidney disease with heart failure and stage 1 through stage 4 chronic kidney disease, or unspecified chronic kidney disease; D62 Acute posthemorrhagic anemia; N18.4 Chronic kidney disease, stage 4 (severe); N28.0 Ischemia and infarction of kidney; E87.21 Acute metabolic acidosis; K25.4 Chronic or unspecified gastric ulcer with hemorrhage; Z51.5 Encounter for palliative care; R57.1 Hypovolemic shock; K29.81 Duodenitis with bleeding; Z66 Do not resuscitate; D63.1 Anemia in chronic kidney disease; I25.10 Atherosclerotic heart disease of native coronary artery without angina pectoris; E03.9 Hypothyroidism, unspecified; F41.9 Anxiety disorder, unspecified; G47.33 Obstructive sleep apnea (adult) (pediatric); E66.9 Obesity, unspecified; I50.82 Biventricular heart failure; I73.9 Peripheral vascular disease, unspecified; M81.0 Age-related osteoporosis without current pathological fracture; M19.90 Unspecified osteoarthritis, unspecified site; E78.2 Mixed hyperlipidemia; Z88.1 Allergy status to other antibiotic agents; Z79.82 Long term (current) use of aspirin; Z79.02 Long term (current) use of antithrombotics/antiplatelets; Z79.890 Hormone replacement therapy; Z79.899 Other long term (current) drug therapy; Z87.891 Personal history of nicotine dependence; Z85.46 Personal history of malignant neoplasm of prostate; Z95.5 Presence of coronary angioplasty implant and graft; Z86.79 Personal history of other diseases of the circulatory system; Z90.89 Acquired absence of other organs; Z98.890 Other specified postprocedural states; Z85.828 Personal history of other malignant neoplasm of skin; Z68.39 Body mass index [BMI] 39.0-39.9, adult
CPT/HCPCS: 36251-RT; 36415; 36569; 36600; 51702; 71045; 74174; 76937; 80047; 80048; 80053; 81001; 82533; 82803; 82947; 83605; 83615; 83735; 83880; 84100; 84145; 84443; 84484; 85014; 85018; 85025; 85384; 85520; 85610; 85730; 86850; 86900; 86901; 86920; 87040; 88305; 88342; 93005; 93010; 93306; 94660; 94760; 94762; 96365-59; 96375-59; 96376-59; 99152; 99153; 99285-25; A9270; C1751; C1769; C1887; C1894; C9113; J0171; J1430; J1630; J1644; J1815; J2001; J2060; J2250; J2270; J2371; J2405; J2543; J2704; J3010; J7030; J7060; J7070; J7120; Q9967